=== PATIENT | female | born 1975 ===

== ENCOUNTER 2025-08-30 10:23 | Inpatient (IN) | payer OTHER ==
[~2025-08-30] VITALS: Ht 243.8 cm; Wt 68.0 kg
[2025-08-30] MEDS ORDERED: MAGNEBIND 3001 EACH (10:53)
[2025-08-30] MEDS ORDERED: ANTICONCEPTIVAS (10:53)
[2025-08-30] MEDS ORDERED: PROPRANOLOL HCL10 MG PO (10:54)
[2025-08-30] MEDS ORDERED: ASHWAGANDHA300 MG (10:54)
[2025-08-30] MEDS ORDERED: NAPR500T14 PO (10:55)
[2025-08-30 11:10] VITALS: BP 138/82
[2025-09-15] MEDS ORDERED: METRONIDAZOLE/SODIUM CHLORIDE 500 MG/100 ML PIGGYBACK IV ONE (08:45)
[2025-09-15] MEDS ORDERED: POVIDONE-IODINE 118 ML BOTT TOP ONE (08:45)
[2025-09-15] MEDS ORDERED: VISTASEAL DUAL APPICATOR 1 EACH APPL TOP ONE (08:45)
[2025-09-15] MEDS ORDERED: LIDOCAINE HCL 1%/EPINEPHRINE 20ML VIAL IJ ONE (08:45)
[2025-09-15] MEDS ORDERED: BUPIVACAINE HCL/PF 0.25% 30ML VIAL InF ONE (08:45)
[2025-09-15] MEDS ORDERED: CEFTRIAXONE SODIUM 2,000 MG VIAL IV ONE (08:45)
[2025-09-15] MEDS ORDERED: THROMBIN,HU/FIBRINOGEN/CALCIUM 10 ML SYRINGE TOP ONE (08:45)
[2025-09-15] MEDS ORDERED: SUGAMMADEX SODIUM 200 MG/2 ML VIAL IV ONE (12:30)
[2025-09-15] MEDS ORDERED: MORPHINE SULFATE 4 MG/ML VIAL IV PRN (12:45)
[2025-09-15] MEDS ORDERED: ONDANSETRON HCL 2 MG/ML VIAL IV PRN (12:45)
[2025-09-15] MEDS ORDERED: OxyCODONE HCL 5 MG TABLET (ROXICODONE) PO PRN (12:45)
[2025-09-15] MEDS ORDERED: RINGERS SOLUTION,LACTATED 1,000 ML IV SCH (12:45)
[2025-09-15] MEDS ORDERED: SIMETHICONE 125 MG CAPSULE PO SCH (13:00)
[2025-09-15] MEDS ORDERED: HYOSCYAMINE SULFATE 0.125 MG TAB.SUBL SL SCH (13:00)
[2025-09-15 13:48] LABS: BASO % 0.1 % (0.1-1.2); EOS # 0.00 (0.04-0.54); EOS % 0.0 % (0.7-7.0); LYMPH # 1.01 (1.18-3.74); LYMPH % 7.2 % (19.3-53.1); MEAN PLATELET VOLUME 9.50 fl (9.4-12.4); MONO # 1.08 (0.24-0.82); MONO % 7.7 % (4.7-12.5); NEUT # 11.91 (1.56-6.13); NEUT % 84.7 % (34.0-71.1); RED CELL DISTRIBUTION WIDTH 13.2 % (11.6-14.4)
[2025-09-15] MEDS ORDERED: ACETAMINOPHEN 500 MG GEL..CAP PO SCH (14:00)
[2025-09-15] MEDS ORDERED: METOCLOPRAMIDE HCL 5 MG/ML VIAL IV SCH (17:00)
[2025-09-15] MEDS ORDERED: GABAPENTIN 300 MG CAPSULE PO SCH (17:00)
[2025-09-15] MEDS ORDERED: LEVALBUTEROL HCL 0.63 MG/3 ML SOLUTION IH SCH (17:00)
[2025-09-15] MEDS ORDERED: GABAPENTIN 300 MG CAPSULE PO ONE (17:20)
[2025-09-15] MEDS ORDERED: SIMETHICONE 125 MG CAPSULE PO ONE (17:20)
[2025-09-15] MEDS ORDERED: HYOSCYAMINE SULFATE 0.125 MG TAB.SUBL ONE (17:20)
[2025-09-15 18:14] VITALS: BP 138/82; O2SAT 98
[2025-09-15] MEDS ORDERED: FAMOTIDINE/PF 20 MG/2 ML VIAL IV PUSH SCH (21:00)
[2025-09-15] MEDS ORDERED: CELECOXIB 200 MG CAPSULE PO SCH (21:00)
[2025-09-16 00:12] VITALS: BP 100/65; O2SAT 96
[2025-09-16 06:56] LABS: BASO % 0.3 % (0.1-1.2); EOS # 0.00 (0.04-0.54); EOS % 0.0 % (0.7-7.0); LYMPH # 1.53 (1.18-3.74); LYMPH % 13.5 % (19.3-53.1); MEAN PLATELET VOLUME 9.50 fl (9.4-12.4); MONO # 0.96 (0.24-0.82); MONO % 8.5 % (4.7-12.5); NEUT # 8.79 (1.56-6.13); NEUT % 77.3 % (34.0-71.1); RED CELL DISTRIBUTION WIDTH 13.2 % (11.6-14.4)
[2025-09-16 07:24] LABS: BUN CREA RATIO 9.0 (7.0-25.0); CREATININE SERUM 0.56 mg/dL (0.55-1.02); GFR 116.04; GLUCOSE FASTING 116.0 mg/dL (65-100); OSMOLALITY SERUM 281.0 MOSM/KG (275-295)
[2025-09-16 08:00] VITALS: BP 117/80; O2SAT 97
[2025-09-16] MEDS ORDERED: KETOROLAC TROMETHAMINE 30 MG VIAL IV SCH (09:00)
[2025-09-16] MEDS ORDERED: LACTOBACILLUS ACIDOPHILUS 1 CAP CAP PO SCH (09:00)
[2025-09-16] MEDS ORDERED: POTASSIUM PHOS,M-BASIC-D-BASIC 3 MM/ML VIAL IV ONE (12:00)
[2025-09-16] MEDS ORDERED: ENOXAPARIN SODIUM 40 MG/0.4 ML SYRINGE SUBCUTANEO SCH (17:00)
[2025-09-16] MEDS ORDERED: AMINO ACIDS/PROTEIN HYDROLYS 30 ML BLIST.PACK PO SCH (17:00)
[2025-09-16 18:21] VITALS: BP 100/66; O2SAT 96
[2025-09-17] VITALS: BP 112/73; O2SAT 98
[2025-09-17 08:00] VITALS: BP 131/82; O2SAT 98
[2025-09-17] MEDS ORDERED: ENOXAPARIN SODIUM 40 MG/0.4 ML SYRINGE SUBCUTANEO SCH (09:00)
[2025-09-17 10:31] LABS: BASO % 0.3 % (0.1-1.2); EOS # 0.07 (0.04-0.54); EOS % 0.6 % (0.7-7.0); LYMPH # 2.12 (1.18-3.74); LYMPH % 17.4 % (19.3-53.1); MEAN PLATELET VOLUME 9.10 fl (9.4-12.4); MONO # 0.74 (0.24-0.82); MONO % 6.1 % (4.7-12.5); NEUT # 9.16 (1.56-6.13); NEUT % 75.3 % (34.0-71.1); RED CELL DISTRIBUTION WIDTH 13.3 % (11.6-14.4)
[2025-09-17 11:36] LABS: BUN CREA RATIO 15.0 (7.0-25.0); CREATININE SERUM 0.34 mg/dL (0.55-1.02); GFR 206.38; GLUCOSE FASTING 116.0 mg/dL (65-100); OSMOLALITY SERUM 279.0 MOSM/KG (275-295)
[2025-09-17] MEDS ORDERED: POTASSIUM CHLORIDE 20MEQ/100ML H2O PB IV NR (13:00)
[2025-09-17] MEDS ORDERED: POTASSIUM PHOS,M-BASIC-D-BASIC 15 MM in 0.9 % SODIUM CHLORIDE 250 ML IV NR (13:00)
[2025-09-17 14:00] VITALS: BP 125/75; O2SAT 99
[2025-09-18 01:18] VITALS: BP 133/85; O2SAT 100
[2025-09-18 08:26] VITALS: BP 135/81; O2SAT 97
== END 2025-09-18 10:56 | disposition home or self-care (01) | DRG 743 ==
LOC: SURG 09-15 07:00 → SURH 09-15 07:00 → O/R 09-15 07:00 → SURH 09-15 11:30 → SURG 09-15 13:28
PROVIDERS: Internal Medicine Geriatric Medicine; Surgery; Urology; ADMIT Obstetrics & Gynecology Gynecology; ATTEND Obstetrics & Gynecology Gynecology
PROC: 0DNN4ZZ Release Sigmoid Colon, Percutaneous Endoscopic Approach (ICD-10-PCS; 2025-09-15)
PROC: 0DNW4ZZ Release Peritoneum, Percutaneous Endoscopic Approach (ICD-10-PCS; 2025-09-15)
PROC: 0TN64ZZ Release Right Ureter, Percutaneous Endoscopic Approach (ICD-10-PCS; 2025-09-15)
PROC: 0UT24ZZ Resection of Bilateral Ovaries, Percutaneous Endoscopic Approach (ICD-10-PCS; 2025-09-15)
PROC: 0UT74ZZ Resection of Bilateral Fallopian Tubes, Percutaneous Endoscopic Approach (ICD-10-PCS; 2025-09-15)
PROC: 0DT84ZZ Resection of Small Intestine, Percutaneous Endoscopic Approach (ICD-10-PCS; 2025-09-15)
PROC: 3E0F7GC Introduction of Other Therapeutic Substance into Respiratory Tract, Via Natural or Artificial Opening (ICD-10-PCS; 2025-09-15)
PROC: 0T788DZ Dilation of Bilateral Ureters with Intraluminal Device, Via Natural or Artificial Opening Endoscopic (ICD-10-PCS; 2025-09-15)
PROC: 0DTJ4ZZ Resection of Appendix, Percutaneous Endoscopic Approach (ICD-10-PCS; 2025-09-15)
PROC: 0TB64ZZ Excision of Right Ureter, Percutaneous Endoscopic Approach (ICD-10-PCS; 2025-09-15)
PROC: 4A1BXSH Monitoring of Gastrointestinal Vascular Perfusion using Indocyanine Green Dye, External Approach (ICD-10-PCS; 2025-09-15)
PROC: 0DJD8ZZ Inspection of Lower Intestinal Tract, Via Natural or Artificial Opening Endoscopic (ICD-10-PCS; 2025-09-15)
PROC: 0UT94ZZ Resection of Uterus, Percutaneous Endoscopic Approach (ICD-10-PCS; principal; 2025-09-15 07:00)
PROC: 0UN14ZZ Release Left Ovary, Percutaneous Endoscopic Approach (ICD-10-PCS; 2025-09-15 07:00)
PROC: 0DNP4ZZ Release Rectum, Percutaneous Endoscopic Approach (ICD-10-PCS; 2025-09-15 07:00)
DX: D25.1 Intramural leiomyoma of uterus (principal); D25.2 Subserosal leiomyoma of uterus; N80.03 Adenomyosis of the uterus; N83.01 Follicular cyst of right ovary; N83.02 Follicular cyst of left ovary; N72 Inflammatory disease of cervix uteri; N94.6 Dysmenorrhea, unspecified; J45.20 Mild intermittent asthma, uncomplicated; N80.519 Endometriosis of the rectum, unspecified depth; N80.529 Endometriosis of the sigmoid colon, unspecified depth; D27.0 Benign neoplasm of right ovary; D27.1 Benign neoplasm of left ovary